=== PATIENT | female | born 1990 | race Asian ===

== ENCOUNTER 2017-11-19 09:25 | Emergency (ER) | payer OTHER ==
[2017-11-19] MEDS ORDERED: KETOROLAC 30 MG/1 ML SDV IVP ONE (10:17)
[2017-11-19] MEDS ORDERED: ONDANSETRON 4 MG/2 ML VIAL IVP ONE (10:17)
[2017-11-19] MEDS ORDERED: FAMOTIDINE 20 MG/NACL 50 ML IV ONE (10:17)
[2017-11-19] MEDS ORDERED: NS 1,000 ML IV ONE (10:17)
[2017-11-19 10:24] LABS: PLATELET COUNT 230 10^3/uL (150-400)
--- NOTE | 2017-11-19 10:31 | EDPHY ---
H & P Time Seen by Provider: 11/19/17 09:50 HPI/ROS: HPI Upper abdominal pain, vomiting. 27-year-old female by private vehicle. This patient reports that since 4:00 a.m. She has had epigastric pain and upper abdominal pain with radiation and burning up through her esophagus. She reports nausea. She reports having 2-3 episodes of nonbilious, nonbloody vomiting as well. No diarrhea. Last bowel movement was yesterday. This described as normal. No bloody or melenic stool. No history of abdominal surgeries. She has had this pain in the past. Last meal was last night. ROS: Constitutional: No fever, no chills. No weakness. Eyes: No discharge. No changes in vision. ENT: No sore throat. No nasal congestion or rhinorrhea. Respiratory: No cough. No shortness of breath. Cardiac: No chest pain, no palpitations. Gastrointestinal: As above. Genitourinary: No hematuria. No dysuria or increased frequency with urination. Musculoskeletal: No back pain. No neck pain. No myalgias or arthralgias. Skin: No rashes. Neurological: No headache. No focal weakness or altered sensation. Past medical history: Prediabetic. Social history: Nonsmoker. Here by herself. No alcohol. Physical Exam: General Appearance: Alert, no distress. This patient is responding to questions appropriately and in full sentences. This patient appears well- hydrated and well-nourished. Eyes: Pupils equal and round no pallor or injection. No lid edema, erythema or injection. Respiratory: There are no retractions, lungs are clear to auscultation with good air movement bilaterally. Cardiovascular: Regular rate and rhythm. No murmur. Gastrointestinal: Abdomen is soft with moderate right upper quadrant, epigastric and left upper quadrant tenderness on palpation, no masses, bowel sounds normal. No focal tenderness at McBurney's point. Positive Acevedo's sign. Neurological: Motor sensory function is grossly intact. Cranial nerves are normal. Gait is normal. Skin: Warm and dry, no rashes. Musculoskeletal: Neck is supple and nontender. Extremities are symmetrical. All joints range without pain or impingement. Psychiatric: No agitation. No depression. Flat affect. Database: EKG: Imaging: Right upper quadrant ultrasound: Cholelithiasis versus adherent gallbladder sludge in the neck. Moderate ductal dilatation. Report off 3rd by staff radiologist and piter. I did not discussed this case with him. Procedures: Emergency department course: IV was placed. She was placed on a quantitative equity head. Vital signs reviewed and are normal. She was started on IV normal saline with 500 cc to 1 L to be given over the next hour. She has no contraindications to NSAIDs. No history of stomach ulcers or renal dysfunction. She will be given 30 mg of IV Toradol, 4 mg of IV Zofran and 20 mg of IV Pepcid. Right upper quadrant ultrasound be obtained. 12:20 p.m., patient re-evaluated. Resting comfortably at this time. Pain is currently controlled. However on repeat abdominal exam she is tender in right upper quadrant with a positive Acevedo sign. I discussed the results of her blood work there ultrasound likely need for cholecystectomy. General surgery paged. 12:20 p.m., spoke with general surgeon Dr. Lloyd Cruz. He will see this patient in the emergency department shortly. 1:00 p.m., Dr. Lloyd Cruz is that the patient's bedside. 1:20 p.m., the patient has been seen and evaluated by on-call general surgeon Dr. Lloyd Cruz. The patient is now electing to go home and have her gallbladder taken out electively. The patient has Dr. Cruz's information. She does not have any significant pain at this time. She is tolerating oral fluids. She was discharged in good condition with instruction to follow up with surgeon early next week. Return to emergency department precautions reviewed with her. All of her questions were answered. She was discharged in good condition. Differential Diagnosis: The differential diagnosis on this patient includes but is not limited to transaminitis, early cholecystitis, gastritis, GERD, pancreatitis, biliary colic. This represents a partial list of diagnoses considered. These considerations are based on history, physical exam, past history, reassessment and diagnostic testing. Smoking Status: Never smoked Constitutional: Initial Vital Signs Temperature (C) 36.5 C 11/19/17 09:29 Heart Rate 73 11/19/17 09:29 Respiratory Rate 16 11/19/17 09:29 Blood Pressure 128/90 H 11/19/17 09:29 O2 Sat (%) 99 11/19/17 09:29 O2 Delivery Mode Room Air Allergies/Adverse Reactions: No Known Allergies Allergy (Verified 11/19/17 09:28) Home Medications: Medication Instructions Recorded Amphet Asp and D/Amphet [Adderall 5 mg PO DAILY14 11/19/17 10 MG (*)] Amphet Asp and D/Amphet [Adderall 10 mg PO DAILY 11/19/17 10 MG (*)] Nuvaring 1 each VG Q30D 11/19/17 Omeprazole 40 mg PO DAILY 11/19/17 Simethicone [Gas-X] 125 mg PO DAILY PRN 11/19/17 Spironolactone [Aldactone 50 MG 50 mg PO DAILY 11/19/17 (RX)] Medical Decision Making - Diagnostics Imaging Results: Imaging Impressions Abdomen Ultrasound 11/19/17 10:18 Impression: 1. Cholelithiasis versus adherent sludge in the gallbladder neck. 2. Moderate biliary ductal dilatation, new from prior imaging. More complete evaluation of the distal common bile duct for obstruction could be accomplished with ERCP or MRCP. - Data Points Laboratory Results: Laboratory Results 11/19/17 10:03 11/19/17 10:03 11/19/17 11/19/17 11/19/17 10:03 10:03 10:03 WBC 8.69 10^3/uL 10^3/uL (3.80-9.50) RBC 4.92 10^6/uL 10^6/uL (4.18-5.33) Hgb 13.4 g/dL g/dL (12.6-16.3) Hct 39.9 % % (38.0-47.0) MCV 81.1 fL L fL (81.5-99.8) MCH 27.2 pg L pg (27.9-34.1) MCHC 33.6 g/dL g/dL (32.4-36.7) RDW 13.0 % % (11.5-15.2) Plt Count 230 10^3/uL 10^3/uL (150-400) MPV 11.6 fL fL (8.7-11.7) Neut % (Auto) 75.7 % H % (39.3-74.2) Lymph % (Auto) 18.3 % % (15.0-45.0) Floyd % (Auto) 5.2 % % (4.5-13.0) Eos % (Auto) 0.1 % L % (0.6-7.6) Baso % (Auto) 0.5 % % (0.3-1.7) Nucleat RBC Rel Count 0.0 % % (0.0-0.2) Absolute Neuts (auto) 6.58 10^3/uL H 10^3/uL (1.70-6.50) Absolute Lymphs (auto) 1.59 10^3/uL 10^3/uL (1.00-3.00) Absolute Monos (auto) 0.45 10^3/uL 10^3/uL (0.30-0.80) Absolute Eos (auto) 0.01 10^3/uL L 10^3/uL (0.03-0.40) Absolute Basos (auto) 0.04 10^3/uL 10^3/uL (0.02-0.10) Absolute Nucleated RBC 0.00 10^3/uL 10^3/uL (0-0.01) Immature Gran % 0.2 % % (0.0-1.1) Immature Gran # 0.02 10^3/uL 10^3/uL (0.00-0.10) Sodium 142 mEq/L mEq/L (135-145) Potassium 4.2 mEq/L mEq/L (3.3-5.0) Chloride 108 mEq/L mEq/L (97-110) Carbon Dioxide 24 mEq/l mEq/l (22-31) Anion Gap 10 mEq/L mEq/L (8-16) BUN 10 mg/dL mg/dL (7-23) Creatinine 0.6 mg/dL mg/dL (0.6-1.0) Estimated GFR > 60 Glucose 99 mg/dL mg/dL (70-100) Calcium 9.6 mg/dL mg/dL (8.5-10.4) Total Bilirubin 0.8 mg/dL mg/dL (0.1-1.4) Conjugated Bilirubin 0.6 mg/dL H mg/dL (0.0-0.5) Unconjugated Bilirubin 0.2 mg/dL mg/dL (0.0-1.1) AST 265 IU/L H IU/L (14-46) ALT 158 IU/L H IU/L (9-52) Alkaline Phosphatase 61 IU/L IU/L (38-126) Total Protein 7.2 g/dL g/dL (6.3-8.2) Albumin 4.3 g/dL g/dL (3.5-5.0) Lipase 147 IU/L IU/L (23-300) Beta HCG, Qual NEGATIVE Medications Given: Discontinued Medications Sodium Chloride (Ns) 1,000 mls @ 0 mls/hr IV EDNOW ONE; Wide Open PRN Reason: Protocol Stop: 11/19/17 10:18 Last Admin: 11/19/17 10:23 Dose: 1,000 mls Famotidine/Sodium Chloride (Pepcid 20 Mg (Premix)) 50 mls @ 200 mls/hr IV EDNOW ONE Stop: 11/19/17 10:31 Last Admin: 11/19/17 10:28 Dose: 50 mls Ketorolac Tromethamine (Toradol) 30 mg IVP EDNOW ONE Stop: 11/19/17 10:18 Last Admin: 11/19/17 10:27 Dose: 30 mg Ondansetron HCl (Zofran) 4 mg IVP EDNOW ONE Stop: 11/19/17 10:18 Last Admin: 11/19/17 10:27 Dose: 4 mg Departure - Departure Disposition: Home, Routine, Self-Care Clinical Impression: Upper abdominal pain, Transaminitis, Biliary colic, Gallstones Condition: Good
--- NOTE | 2017-11-19 13:44 | EDPHY ---
H & P Time Seen by Provider: 11/19/17 09:50 Smoking Status: Never smoked Constitutional: Initial Vital Signs Temperature (C) 36.5 C 11/19/17 09:29 Heart Rate 73 11/19/17 09:29 Respiratory Rate 16 11/19/17 09:29 Blood Pressure 128/90 H 11/19/17 09:29 O2 Sat (%) 99 11/19/17 09:29 O2 Delivery Mode Room Air Allergies/Adverse Reactions: No Known Allergies Allergy (Verified 11/19/17 09:28) Home Medications: Medication Instructions Recorded Amphet Asp and D/Amphet [Adderall 5 mg PO DAILY14 11/19/17 10 MG (*)] Amphet Asp and D/Amphet [Adderall 10 mg PO DAILY 11/19/17 10 MG (*)] Nuvaring 1 each VG Q30D 11/19/17 Omeprazole 40 mg PO DAILY 11/19/17 Simethicone [Gas-X] 125 mg PO DAILY PRN 11/19/17 Spironolactone [Aldactone 50 MG 50 mg PO DAILY 11/19/17 (RX)] Medical Decision Making - Data Points Laboratory Results: Laboratory Results 11/19/17 10:03 11/19/17 10:03 Medications Given: Discontinued Medications Sodium Chloride (Ns) 1,000 mls @ 0 mls/hr IV EDNOW ONE; Wide Open PRN Reason: Protocol Stop: 11/19/17 10:18 Last Admin: 11/19/17 10:23 Dose: 1,000 mls Famotidine/Sodium Chloride (Pepcid 20 Mg (Premix)) 50 mls @ 200 mls/hr IV EDNOW ONE Stop: 11/19/17 10:31 Last Admin: 11/19/17 10:28 Dose: 50 mls Ketorolac Tromethamine (Toradol) 30 mg IVP EDNOW ONE Stop: 11/19/17 10:18 Last Admin: 11/19/17 10:27 Dose: 30 mg Ondansetron HCl (Zofran) 4 mg IVP EDNOW ONE Stop: 11/19/17 10:18 Last Admin: 11/19/17 10:27 Dose: 4 mg Departure - Departure Disposition: Home, Routine, Self-Care Clinical Impression: Upper abdominal pain, Transaminitis, Biliary colic, Gallstones Condition: Good Instructions: Biliary Colic (ED), Acute Nausea and Vomiting (ED) Additional Instructions: Return the emergency dept. immediately for worsening abdominal pain , vomiting, fever, or other serious concerns. Follow up with Dr. Lloyd Mackenzie, gail next for elective scheduling for gallbladder surgery. Referrals: Lloyd Cruz MD [Medical Doctor] - As per Instructions
--- NOTE | 2017-11-19 13:44 | GHP ---
[f rep st] HISTORY AND PHYSICAL DATE OF ADMISSION: 11/19/2017 CHIEF COMPLAINT: Right upper quadrant pain. PRESENT ILLNESS: 27-year-old female presents with severe right upper quadrant and epigastric pain ra diating to her back. She states she has had similar previous episodes, some of which extend for a ye ar. She has been in ERs before and has not achieved a diagnosis today. An ultrasound shows to me cl ear-cut stones, although there is no posterior acoustic shadowing, but it really does not look like s ludge. They seem to be well-formed stones. Liver function test are mildly elevated with an AST of 265, ALT 158, but the alkaline phosphatase is normal and the bilirubin total is 0.8. PAST MEDICAL HISTORY: None. MEDICAL ALLERGIES: None. CURRENT MEDICATIONS: Spironolactone for acne, Adderall 10 in the morning, 5 at night, and a NuvaRing for control. FAMILY HISTORY: Diabetes. Nonsmoker. No alcohol use. Patient denies asthma, heart trouble, diabet es, epilepsy, rheumatic fever. PAST SURGICAL HISTORY: Oral. 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 PHYSICAL EXAM: HEENT: No scleral icterus. Pharynx clear. NECK: Supple without adenopathy. LUNGS : Clear. HEART: Normal S1, S2 without murmur. ABDOMEN: Soft, benign. Negative Acevedo sign. ASSESSMENT: Patient is seen in the ER with epigastric and right upper quadrant pain which is now rel ieved. She received Toradol, not narcotics, in the emergency room. I discussed emergent versus elec tive cholecystectomy with her, and because of her work schedule, she would like to delay the surgery. This is reasonable. I recommended they try her on a food challenge prior to discharge, but if this goes well, an elective cholecystectomy can be done at her convenience. Copy requested to: Dr. Amelia Arellano /[id number]/MODL
[2017-11-19 13:52] VITALS: BP 135/90
== END 2017-11-19 13:51 | disposition home or self-care (01) ==
LOC: UNDOADMOB 12:27
DX: K80.70 Calculus of gallbladder and bile duct without cholecystitis without obstruction (principal); R74.0 Nonspecific elevation of levels of transaminase and lactic acid dehydrogenase [LDH]; E86.9 Volume depletion, unspecified
CPT/HCPCS: 96365; J1885; J2405

== ENCOUNTER 2017-11-25 02:26 | Observation (INO) | payer OTHER ==
[2017-11-25] MEDS ORDERED: ONDANSETRON 4 MG/2 ML VIAL ONE ×2 (02:44→10:57)
[2017-11-25] MEDS ORDERED: ONDANSETRON 4 MG/2 ML VIAL IVP ONE (02:48)
[2017-11-25] MEDS ORDERED: NS 1,000 ML IV ONE ×2 (02:48→05:25)
[2017-11-25 03:17] LABS: PLATELET COUNT 246 10^3/uL (150-400)
[2017-11-25] MEDS ORDERED: KETOROLAC 15 MG/1 ML SDV IVP ONE (03:18)
[2017-11-25] MEDS ORDERED: HYDROmorphONE/DILAUDID 2 MG/ML INJ IVP ONE (03:18)
--- NOTE | 2017-11-25 03:22 | EDPHY ---
H & P Stated Complaint: gallstones dx 11/19, N/V/D Time Seen by Provider: 11/25/17 03:11 HPI/ROS: HPI The patient presents with epigastric and right upper quadrant abdominal pain which began at about 10:30 p.m. Tonight which is described as a punching sensation deep in her abdomen with radiation to her right flank. She last ate at 7:30 p.m., an omelet. She has had associated nausea and vomiting without any fever. The pain has been constant since it started. It feels like the pain she had several days ago when she was diagnosed with symptomatic coli lithiasis. She was in the Emergency Department on November 19 with similar symptoms. Ultrasound revealed gallstones and transaminases were elevated. She was seen in consultation by Dr. Curz and she decided that she would like to have outpatient surgery. In the meantime, she sought a 2nd opinion from GI [facility] and there was some concern for choledocholithiasis.. REVIEW OF SYSTEMS Constitutional: No fever, no chills. Eyes: No discharge. ENT: No sore throat. Cardiovascular: No chest pain, no palpitations. Respiratory: No cough, no shortness of breath. Gastrointestinal: See HPI Genitourinary: No hematuria. Musculoskeletal: No back pain. Skin: No rashes. Neurological: No headache. PMHx: Cholelithiasis as above Soc Hx: Housed PHYSICAL General Appearance: Alert, no distress Eyes: Pupils equal and round no pallor or injection ENT, Mouth: Mucous membranes moist Respiratory: There are no retractions, lungs are clear to auscultation Cardiovascular: Regular rate and rhythm Gastrointestinal: Abdomen is soft and tender in the epigastrium and right upper quadrant with voluntary guarding Neurological: A&O, moves all extremities Skin: Warm and dry, no rashes Musculoskeletal: Neck is supple non tender Extremities: symmetrical, full range of motion Psychiatric: Patient is oriented X 3, there is no agitation Source: Patient Exam Limitations: No limitations - Personal History LMP (Females 10-55): 8-14 Days Ago Current Tetanus/Diphtheria Vaccine: Yes - Medical/Surgical History Hx Asthma: No Hx Chronic Respiratory Disease: No Hx Diabetes: No Hx Cardiac Disease: No Hx Renal Disease: No Hx Cirrhosis: No Hx Alcoholism: No Hx HIV/AIDS: No Hx Splenectomy or Spleen Trauma: No Other PMH: pmh- pre-diabetic - Social History Smoking Status: Never smoked Constitutional: Initial Vital Signs Temperature (C) 36.3 C 11/25/17 02:28 Heart Rate 106 H 11/25/17 02:28 Respiratory Rate 16 11/25/17 02:28 Blood Pressure 113/73 11/25/17 02:28 O2 Sat (%) 97 11/25/17 02:28 O2 Delivery Mode Room Air Allergies/Adverse Reactions: No Known Allergies Allergy (Verified 11/19/17 09:28) Home Medications: Medication Instructions Recorded Amphet Asp and D/Amphet [Adderall 5 mg PO DAILY14 11/19/17 10 MG (*)] Amphet Asp and D/Amphet [Adderall 10 mg PO DAILY 11/19/17 10 MG (*)] Nuvaring 1 each VG Q30D 11/19/17 Omeprazole 40 mg PO DAILY 11/19/17 Simethicone [Gas-X] 125 mg PO DAILY PRN 11/19/17 Spironolactone [Aldactone 50 MG 50 mg PO DAILY 11/19/17 (RX)] Medical Decision Making - Diagnostics Imaging Results: Right upper quadrant ultrasound demonstrates multiple small gallstones with gallstone present in gallbladder neck. There are no pericholecystic fluid, sonographic Acevedo's. CBD is 5-8 mm, discussed with Dr. Stafford of Radiology. Imaging: Discussed imaging studies w/ bolt sawyer Radiologist Differential Diagnosis: This is a 27-year-old female, who was diagnosed with symptomatic cholelithiasis several days ago now returning with recurrence of her abdominal pain and vomiting. Differential diagnosis includes symptomatic cholelithiasis, cholecystitis, choledocholithiasis. In the emergency department, patient was given IV fluids, Zofran, Toradol, Dilaudid. She had improvement in her symptoms. Labs were checked and did reveal transaminitis, slightly worse than her prior ER visit. White blood cell count had increased from 8k to 11k.. Ultrasound revealed cholelithiasis which with small stone in the gallbladder neck. I reassessed the patient and her pain had improved somewhat with medications above. I consulted with Dr. Su from General surgery. The patient is amenable to admission and possible operation. He has requested Ancef and Bentyl for her. I have ordered these medications. - Data Points Laboratory Results: Laboratory Results 11/25/17 02:40 11/25/17 02:40 11/25/17 11/25/17 11/25/17 03:30 02:40 02:40 WBC RBC Hgb Hct MCV MCH MCHC RDW Plt Count MPV Neut % (Auto) Lymph % (Auto) Walker % (Auto) Eos % (Auto) Baso % (Auto) Nucleat RBC Rel Count Absolute Neuts (auto) Absolute Lymphs (auto) Absolute Monos (auto) Absolute Eos (auto) Absolute Basos (auto) Absolute Nucleated RBC Immature Gran % Immature Gran # Sodium 140 mEq/L mEq/L (135-145) Potassium 3.7 mEq/L mEq/L (3.3-5.0) Chloride 100 mEq/L mEq/L (97-110) Carbon Dioxide 27 mEq/l mEq/l (22-31) Anion Gap 13 mEq/L mEq/L (8-16) BUN 12 mg/dL mg/dL (7-23) Creatinine 0.7 mg/dL mg/dL (0.6-1.0) Estimated GFR > 60 Glucose 119 mg/dL H mg/dL (70-100) Calcium 9.7 mg/dL mg/dL (8.5-10.4) Total Bilirubin 1.1 mg/dL mg/dL (0.1-1.4) Conjugated Bilirubin 0.9 mg/dL H mg/dL (0.0-0.5) Unconjugated Bilirubin 0.2 mg/dL mg/dL (0.0-1.1) AST 329 IU/L H IU/L (14-46) ALT 252 IU/L H IU/L (9-52) Alkaline Phosphatase 85 IU/L IU/L (38-126) Total Protein 7.3 g/dL g/dL (6.3-8.2) Albumin 4.3 g/dL g/dL (3.5-5.0) Lipase 239 IU/L IU/L (23-300) Beta HCG, Qual NEGATIVE Urine Color YELLOW Urine Appearance MODERATELY TURBID Urine pH 9.0 H (5.0-7.5) Ur Specific Forrest 1.014 (1.002-1.030) Urine Protein NEGATIVE (NEGATIVE) Urine Ketones TRACE H (NEGATIVE) Urine Blood NEGATIVE (NEGATIVE) Urine Nitrate NEGATIVE (NEGATIVE) Urine Bilirubin NEGATIVE (NEGATIVE) Urine Urobilinogen NEGATIVE EU EU (0.2-1.0) Ur Leukocyte Esterase NEGATIVE (NEGATIVE) Urine RBC 1-3 /hpf /hpf (0-3) Urine WBC 1-3 /hpf /hpf (0-3) Ur Epithelial Cells TRACE /lpf /lpf (NONE-1+) Amorphous Sediment PRESENT /hpf /hpf (NONE-1+) Urine Glucose NEGATIVE (NEGATIVE) 11/25/17 02:40 WBC 11.82 10^3/uL H 10^3/uL (3.80-9.50) RBC 5.12 10^6/uL 10^6/uL (4.18-5.33) Hgb 13.9 g/dL g/dL (12.6-16.3) Hct 42.0 % % (38.0-47.0) MCV 82.0 fL fL (81.5-99.8) MCH 27.1 pg L pg (27.9-34.1) MCHC 33.1 g/dL g/dL (32.4-36.7) RDW 12.9 % % (11.5-15.2) Plt Count 246 10^3/uL 10^3/uL (150-400) MPV 11.8 fL H fL (8.7-11.7) Neut % (Auto) 70.0 % % (39.3-74.2) Lymph % (Auto) 22.9 % % (15.0-45.0) Walker % (Auto) 6.3 % % (4.5-13.0) Eos % (Auto) 0.3 % L % (0.6-7.6) Baso % (Auto) 0.2 % L % (0.3-1.7) Nucleat RBC Rel Count 0.0 % % (0.0-0.2) Absolute Neuts (auto) 8.28 10^3/uL H 10^3/uL (1.70-6.50) Absolute Lymphs (auto) 2.71 10^3/uL 10^3/uL (1.00-3.00) Absolute Monos (auto) 0.74 10^3/uL 10^3/uL (0.30-0.80) Absolute Eos (auto) 0.04 10^3/uL 10^3/uL (0.03-0.40) Absolute Basos (auto) 0.02 10^3/uL 10^3/uL (0.02-0.10) Absolute Nucleated RBC 0.00 10^3/uL 10^3/uL (0-0.01) Immature Gran % 0.3 % % (0.0-1.1) Immature Gran # 0.03 10^3/uL 10^3/uL (0.00-0.10) Sodium Potassium Chloride Carbon Dioxide Anion Gap BUN Creatinine Estimated GFR Glucose Calcium Total Bilirubin Conjugated Bilirubin Unconjugated Bilirubin AST ALT Alkaline Phosphatase Total Protein Albumin Lipase Beta HCG, Qual Urine Color Urine Appearance Urine pH Ur Specific Forrest Urine Protein Urine Ketones Urine Blood Urine Nitrate Urine Bilirubin Urine Urobilinogen Ur Leukocyte Esterase Urine RBC Urine WBC Ur Epithelial Cells Amorphous Sediment Urine Glucose Medications Given: Discontinued Medications Dicyclomine HCl (Bentyl) 20 mg PO EDNOW ONE Stop: 11/25/17 04:35 Last Admin: 11/25/17 04:52 Dose: 20 mg Hydromorphone HCl (Dilaudid) 0.5 mg IVP EDNOW ONE Stop: 11/25/17 03:19 Last Admin: 11/25/17 03:23 Dose: 0.5 mg Sodium Chloride (Ns) 1,000 mls @ 0 mls/hr IV ONCE ONE PRN Reason: Wide Open Stop: 11/25/17 02:49 Last Admin: 11/25/17 02:49 Dose: 1,000 mls Cefazolin Sodium/Dextrose (Ancef 1 Gm (Premix)) 50 mls @ 200 mls/hr IV EDNOW ONE PRN Reason: Protocol Stop: 11/25/17 04:48 Last Admin: 11/25/17 05:06 Dose: 50 mls Ketorolac Tromethamine (Toradol) 15 mg IVP EDNOW ONE Stop: 11/25/17 03:19 Last Admin: 11/25/17 03:23 Dose: 15 mg Ondansetron HCl (Zofran) 4 mg IVP EDNOW ONE Stop: 11/25/17 02:49 Last Admin: 11/25/17 02:49 Dose: 4 mg Departure - Departure Disposition: [facility] Acute Clinical Impression: Symptomatic cholelithiasis Condition: Good
[2017-11-25] MEDS ORDERED: DICYCLOMINE 10 MG CAP PO ONE (04:34)
[2017-11-25] MEDS ORDERED: HYDROmorphONE/DILAUDID 1 MG/ML INJ IVP PRN ×2 (06:20→12:57)
[2017-11-25] MEDS ORDERED: ONDANSETRON 4 MG/2 ML VIAL IVP PRN (06:20)
[2017-11-25] MEDS ORDERED: NS 1,000 ML IV SCH (06:30)
[2017-11-25] MEDS: ACETAMINOPHEN 500 MG TAB PO SCH ×4 (07:41→23:13)
--- NOTE | 2017-11-25 07:44 | GHP ---
[f rep st] PREOP HISTORY AND PHYSICAL DATE OF ADMISSION: 11/25/2017 ADMITTING DIAGNOSIS: Acute cholecystitis with cholelithiasis. HISTORY: The patient is a 27-year-old female. She has had intermittent abdominal pain for the past 2 years. She was seen in the ER on November 19. She was found to have gallstones and elevated transaminases. Cholelithiasis was identified at that time. Since that point, her pain has remained at approximately 2/10. Last evening at 7:30 she had an omelette for dinner. At 10 :30 she had the onset of a constant right upper quadrant pain which described "as if she is being punched." She could not find a comfortable position. She had seen gastroenterology of the [facility] in the interim and had be given anti- spasmodic. She tried lying on her right side in the position after taking the anti-spasmodic and that was not helpful. She did vomit 4 times and came to the emergency room. On initial presentation, she had a positive Acevedo sign. A followup ultrasound showed her common duct to be 5-8 mm in diameter with no obvious stones in the common bile duct per report. She did not have a sonographically positive Acevedo sign at that point, but did have a 5 mm stone. I was asked to come see her and evaluate her. SOCIAL HISTORY: She does not smoke tobacco but occasionally smokes marijuana. She drinks alcohol on a rare basis (1 drink every other week). ALLERGIES: She has no known drug allergies. MEDICATIONS: She takes Adderall 10 mg every morning and 5 mg at noon every day. She uses a NuvaRing. She takes Prilosec 40 mg daily. She takes Aldactone 50 mg daily. She has polycystic ovaries and she feels it also helps her acne. PAST SURGICAL HISTORY: She has had wisdom tooth extraction. Early this year because of her persistent gastroenterological problems she had both an upper and lower endoscopy which were both negative. There is no history of rheumatic fever, tuberculosis. Her family has had hepatitis A and she wonders whether she has had it or not. There is no history of transfusions. REVIEW OF SYSTEMS: Her stones were small. Her mean corpuscular hemoglobin is low, and she does have a cousin who has a thalassemia. She wears contact lenses for visual correction. She has been seen and evaluated for possible gastritis, which is why she takes the Prilosec. When she was in high school, she was approximately 25 pounds heavier. At one point she was thought to be hypothyroid. She also was thought to be prediabetic and was on metformin for a period in high school. No limits on her activities. No history of steroid use. FAMILY HISTORY: Her mother is 55 years old and "prediabetic." Her father is 60 years old and is a diabetic. She has a younger brother, who is 22, is alive well. There was no bleeding disorders, clotting disorders, difficulty with anesthesia in the patient or the family. PHYSICAL EXAMINATION: GENERAL: She is awake and alert. She has received Ancef , Toradol, and Bentyl. At this point she is feeling more comfortable. She awake, alert, and oriented. NEUROLOGIC: There are no focal lateralizing neurologic findings. NECK: Thyroid is not enlarged. There are no carotid bruits. BACK: Unremarkable. LUNGS: Clear to auscultation. CARDIAC: S1-S2 are normal. Normal split of S2. ABDOMEN: Shows hypoactive bowel sounds. It is nontender to palpation in all quadrants and at this point her Acevedo sign although present on admission has remarkably diminished. VITAL SIGNS: Her temperature is 36.3, heart rate was 106 on admission, blood pressure 113/73, saturation 97% on room air. LABORATORY DATA: Her hematocrit is 42. Her mean corpuscular hemoglobin is 27.1 , and platelet count is 246. Her bilirubin total is 1.1 with 0.9 direct, 0.2 indirect. Her AST has gone up from 6 days ago from 256 to 329. ALT is has gone up from 158 to 252, alkaline phosphatase is 85. Her beta HCG is negative. IMPRESSION: I feel this patient has symptomatic cholelithiasis. I have no distinct concerns at this point for choledocholithiasis, though we have talked about that aspect. I do not feel that MRCP is necessary at this time. I will try to do a cholangiogram at surgery if it is safe. We have talked about retained stones or de shelli choledocholithiasis in the future. I suggest that she get a workup screening for thalassemia given the family history if she in fact does have calcium bilirubinate stones. I have discussed her case with her mother and her aunt (who is an food and nutrition professor). The patient, her aunt and her mother agree to proceed as outlined. /[id number]/MODL MTDD
[2017-11-25] MEDS ORDERED: LR 1,000 ML IV ONE (08:59)
[2017-11-25] MEDS ORDERED: NUVARING VG SCH (09:15)
[2017-11-25] MEDS ORDERED: MIDAZOLAM 2 MG/2 ML VIAL IVP ONE (10:00)
--- NOTE | 2017-11-25 10:00 | PDANEPAE ---
ANE History of Present Illness acute cholecystitis ANE Past Medical History - Cardiovascular History Hx Hypertension: No Hx Arrhythmias: No Hx Chest Pain: No Hx Coronary Artery / Peripheral Vascular Disease: No Hx CHF / Valvular Disease: No Hx Palpitations: No - Pulmonary History Hx COPD: No Hx Asthma/Reactive Airway Disease: No Hx Recent Upper Respiratory Infection: No Hx Oxygen in Use at Home: No Hx Sleep Apnea: No Sleep Apnea Screening Result - Last Documented: Negative - Endocrine History Hx Diabetes: No Hypothyroid: No Hyperthyroid: No Obesity: no - Renal History Hx Renal Disorders: No - Liver History Hx Hepatic Disorders: No - GI History GERD: moderate - Other Health History Other Health History: PCOS - Chronic Pain History Chronic Pain: No ANE Review of Systems Review of systems is: negative Review of Systems: - Exercise capacity Exercise capacity: >=4 METS ANE Patient History - Allergies Allergies/Adverse Reactions: No Known Allergies Allergy (Verified 11/19/17 09:28) - Home Medications Home Medications: Amphet Asp and D/Amphet [Adderall 10 MG (*)] 5 mg PO DAILY@12 11/19/17 [Last Taken 11/24/17] Amphet Asp and D/Amphet [Adderall 10 MG (*)] 10 mg PO DAILY 11/19/17 [Last Taken 11/24/17] Nuvaring 1 each VG Q30D 11/19/17 [Last Taken Unknown] Simethicone [Gas-X] 125 mg PO DAILY PRN 11/19/17 [Last Taken Unknown] Spironolactone [Aldactone 50 MG (RX)] 50 mg PO DAILY 11/19/17 [Last Taken 2 Weeks Ago ~11/05/17] - NPO status NPO Status: no food or drink >8 hours NPO Since - Liquids (Date): 11/25/17 NPO Since - Liquids (Time): 00:00 NPO Since - Solids (Date): 11/24/17 NPO Since - Solids (Time): 19:30 - Anes Hx Anes Hx: no prior problems - Smoking Hx Smoking Status: Never smoked Marijuana use: Yes - Alcohol Use Alcohol Use: Occasionally - Family Anes Hx Family Anes Hx: none ANE Labs/Vital Signs - Labs Result Diagrams: 11/25/17 02:40 11/25/17 02:40 - Vital Signs Blood Pressure: 114/64 Heart Rate: 79 Respiratory Rate: 18 O2 Sat (%): 96 Height: 162.56 cm Weight: 65.77 kg ANE Physical Exam - Airway Neck exam: FROM Mallampati Score: Class 2 - Pulmonary Pulmonary: no respiratory distress - Cardiovascular Cardiovascular: regular rate and rhythym - ASA Status ASA Status: II ANE Anesthesia Plan Anesthesia Plan: general endotracheal anesthesia
[2017-11-25] MEDS ORDERED: HEPARIN 5,000 UNIT/0.5 ML INJ ONE (10:35)
[2017-11-25] MEDS ORDERED: IOTHALAMATE MEG (CONRAY) 50 ML VIAL IV ONE (10:35)
[2017-11-25] MEDS ORDERED: ceFAZolin 1 GM/5 ML SYR ONE (10:36)
[2017-11-25] MEDS ORDERED: fentaNYL 100 MCG/2 ML INJ ONE ×4 (10:57→13:10)
[2017-11-25] MEDS ORDERED: DEXAMETHASONE 4 MG/ML VIAL ONE (10:57)
[2017-11-25] MEDS ORDERED: SUGAMMADEX SODIUM 200 MG/2 ML VIAL IVP ONE (10:57)
[2017-11-25] MEDS ORDERED: ROCURONIUM 50 MG/5 ML VIAL ONE (10:57)
[2017-11-25] MEDS ORDERED: LIDOCAINE 2% 5 ML SDV ONE (10:57)
[2017-11-25] MEDS ORDERED: KETOROLAC 30 MG/1 ML SDV ONE (10:57)
[2017-11-25] MEDS ORDERED: PROPOFOL 200 MG/20 ML VIAL ONE (10:57)
[2017-11-25] MEDS ORDERED: ACETAMINOPHEN 500 MG TAB PO PRN (12:57)
[2017-11-25] MEDS ORDERED: HYDROCODONE/APAP 5/325 TAB PO PRN (12:57)
[2017-11-25] MEDS ORDERED: ALBUTEROL 3 ML DEYVIAL IH PRN (12:57)
[2017-11-25] MEDS ORDERED: NALOXONE HCL 0.4 MG/ML INJ IVP PRN (12:57)
[2017-11-25] MEDS ORDERED: PROMETHAZINE HCL 25 MG/ML INJ IVP PRN (12:57)
[2017-11-25] MEDS ORDERED: oxyCODONE IR 5 MG TAB PO PRN (12:57)
--- NOTE | 2017-11-25 12:57 | POSTANESTH ---
Post Anesthetic Evaluation Cardiovascular Status: Normal, Stable Respiratory Status: Normal, Stable Level of Consciousness/Mental Status: Can Participate in Eval, Mildly Sleepy, Arousable Pain Control: Adequate, Prn Tx Ordered Nausea/Vomiting Control: Adequate, Prn Tx Ordered Complications Possibly Related to Anesthesia: None Noted
--- NOTE | 2017-11-25 12:58 | POSTOPPROG ---
Post Op Note Date of Operation: 11/25/17 Surgeon: Qamar Su Pre-op Diagnosis: acute/chronic cholecystitis with cholelithiasis Post-op Diagnosis: acute/chronic cholecystitis with cholelithiasis Indication: acute/chronic cholecystitis with cholelithiasis Procedure: Laparoscopic cholecystectomy with cholangiogram Findings: acute/chronic cholecystitis with cholelithiasis Inf/Abcess present in the surg proc area at time of surgery?: No EBL: 50-100 Total fluids administered: 700 Complications: none Specimen(s): gallbladder
[2017-11-25] MEDS ORDERED: HYDROmorphONE/DILAUDID 1 MG/ML INJ ONE (13:10)
[2017-11-25] MEDS: fentaNYL 100 MCG/2 ML INJ IVP PRN ×2 (13:12→13:21)
--- NOTE | 2017-11-25 13:37 | GOP ---
[f rep st] OPERATIVE REPORT DATE OF OPERATION: 11/25/2017 SURGEON: Qamar Su MD ANESTHESIA: General endotracheal. PREOPERATIVE DIAGNOSIS: Acute on chronic cholecystitis with cholelithiasis. POSTOPERATIVE DIAGNOSIS: Acute on chronic cholecystitis with cholelithiasis. PROCEDURE PERFORMED: Laparoscopic cholecystectomy with cholangiogram. FINDINGS: Acute and chronic cholecystitis with cholelithiasis. SPECIMENS: Gallbladder. Note is made that the stones looked to be cholesterol , not calcium bilirubinate. ESTIMATED BLOOD LOSS: Between 50 and 100 cc. INDICATIONS: Acute and chronic cholecystitis with cholelithiasis. DESCRIPTION OF PROCEDURE: The patient was placed on the operating table in supine position. After induction of adequate general endotracheal anesthesia, the abdomen was carefully prepped and draped. A surgical time-out was carried out and agreed to by all members of the operative team. A curvilinear incision was planned in the inferior umbilical fold. Dissection was continued down to the anterior rectus sheath which was elevated between Allis clamps. The fascia was incised in the midline. A pursestring of #0 PDS was placed. The peritoneum was entered. An 11/12 mm disposable Eliezer trocar was positioned. Intra-abdominal insufflation was carried out to 15 mm at high flow. A midline transverse upper epigastric incision was made for placement of a 5 mm port. Two right upper quadrant 5 mm incisions were placed obliquely for placement of a 5 mm port. Intraabdominal inspection was carried out. There were minimal adhesions to the gallbladder. It was grasped at the apex and at the infundibulum and elevated. The Calot triangle was carefully explored. There was an anterior and aberrant placement of a cystic artery. This was doubly clipped on the patient's side, singly clipped on the gallbladder side. A dilated and tortuous cystic duct was identified. (approximately 3 mm in diameter). A cholangiogram was then performed. The gallbladder was elevated at the infundibulum. The cystic duct was kay transected after a critical view had been obtained to make sure there were not any other ductal structures. The cholangiogram catheter was carefully flushed. Cholangiogram catheter was carefully passed. The cholangiogram was performed. It showed a very long cystic duct as suspected. It showed good flow into the duodenum without any signs of retained stones. It showed good backflow into the hepatic branches. The cholangiogram catheter was removed. The duct was carefully clipped to prevent leakage. The duct was now dissected further proximally to minimize the redundancy. It was carefully clipped 3 times and divided distal to the clips. Care was taken to not compromise the common bile duct. The gallbladder was now carefully removed using a hook cautery. A 2nd branch cystic artery was identified posteriorly and higher on the gallbladder. This was carefully clipped and divided. The gallbladder was successfully removed from its fossa. Hemostasis was achieved with Bovie electrocautery. The gallbladder was then removed in an EndoCatch bag. At the end of the procedure, on the back table the gallbladder was opened and the stones were not calcium bilirubinate, but rather cholesterol. Pneumoperitoneum was re-established. Irrigation was carried out. Hemostasis was assured. The report from Radiology confirmed my interpretation of the cholangiogram was received. The ports were removed under direct vision. The midline fascial defect was closed with inverted simple suture of #0 PDS. The pursestring was now carefully tied. The subcutaneous tissue was well irrigated. The skin was closed with inverted simple sutures of #4-0 Vicryl. Mastisol and Steri-Strips were placed. The patient tolerated the procedure well and was transferred to recovery in stable and satisfactory condition. FLUIDS ADMINISTERED: 700 cc. COMPLICATIONS: None. /[id number]/MODL MTDD
[2017-11-25] MEDS: FAMOTIDINE 20 MG/NACL 50 ML IV SCH ×2 (13:53→20:12)
[2017-11-25] MEDS: ADDERALL 10 MG TAB PO SCH (14:01)
[2017-11-25] MEDS: KETOROLAC 15 MG/1 ML SDV IVP SCH ×3 (14:01→23:14)
[2017-11-26] MEDS: ACETAMINOPHEN 500 MG TAB PO SCH ×2 (05:47→15:57)
[2017-11-26] MEDS: KETOROLAC 15 MG/1 ML SDV IVP SCH ×2 (05:47→12:35)
[2017-11-26] MEDS ORDERED: ADDERALL 10 MG TAB PO SCH (09:00)
[2017-11-26] MEDS ORDERED: SPIRONOLACTONE 50 MG TAB PO SCH (09:00)
--- NOTE | 2017-11-26 10:03 | ASMTCMCOM ---
CM Note CM Note Notes: Pt had lap choly with intraoperative cholangiogram. Anticipate pt will d/c when medically stable. No CM d/c needs identified. CM available for changes/needs. Date Signed: 11/26/2017 10:02 AM Electronically Signed By:VINICIUS Smith
[2017-11-26] MEDS: FAMOTIDINE 20 MG/NACL 50 ML IV SCH (10:12)
[2017-11-26] MEDS ORDERED: FAMOTIDINE 20 MG TAB PO SCH (11:00)
[2017-11-26 11:30] VITALS: BP 116/77
[2017-11-26] MEDS ORDERED: KETOROLAC 30 MG/1 ML SDV IVP SCH (12:00)
[2017-11-26] MEDS: ADDERALL 10 MG TAB PO SCH (12:22)
--- NOTE | 2017-11-26 14:12 | SOAPPROG ---
SOAP Progress Note Assessment/Plan: 11/26/17 14:09 PAD#1 Assessment: Doing well, VSS, Eating and passing flatus. Pain controlled Plan: Discharge Subjective: I have some pain but its manageable Objective: Vital Signs Temp Pulse Resp BP Pulse Ox 36.4 C 77 14 116/77 98 11/26/17 11:30 11/26/17 11:30 11/26/17 11:30 11/26/17 11:30 11/26/17 11:30 Laboratory Results 11/26/17 04:46 11/26/17 04:46 11/25/17 11/26/17 11/27/17 05:59 05:59 05:59 Intake Total 1000 880 Output Total 100 Balance 1000 780 - Time Spent With Patient Time Spent With Patient: 15 Physical Exam - Physical Exam General Appearance: WD/WN, alert, no apparent distress Neck: non-tender, full range of motion, supple, normal inspection Respiratory: chest non-tender, lungs clear, normal breath sounds Cardiac/Chest: regular rate, rhythm Abdomen: normal bowel sounds, non-tender, soft, other (Incisions dry and well approximated) Pelvic Exam: deferred Rectal: deferred Back: Normal inspection Skin: normal color, warm/dry Lymphatic: no adenopathy Extremities: normal range of motion Neuro/Psych: no motor/sensory deficits, alert, normal mood/affect, oriented x 3 ICD10 Worksheet Patient Problems: Problems Problem Status Onset Symptomatic cholelithiasis Acute Abdominal pain Acute Biliary colic Acute Gallstones Acute
--- NOTE | 2017-11-26 14:54 | ASMTLACE ---
SHELLEYE Length of stay for Answers: 1 day current admission Acuity / Level of Answers: No Care: Did the patient have an inpatient admission? # of Emergency department Answers: 1-2 visits in the last 6 months Score: 2 Date Signed: 11/26/2017 02:54 PM Electronically Signed By:VINICIUS Smith
--- NOTE | 2017-11-26 15:00 | GDS ---
[f rep st] DISCHARGE SUMMARY DIAGNOSES: 1. Acute chronic cholecystitis with cholelithiasis. 2. Chronic abdominal pain. PROCEDURE: Laparoscopic cholecystectomy with intraoperative cholangiogram. CONDITION AT DISCHARGE: Improved/good. DISPOSITION: Home. DIET RESTRICTION: A regular diet, but she is to avoid a high fat diet. Specifically, I have recommended she try to keep her diet under 20% of her calories as fat. I have also recommended she avoid constipating foods such as bananas, rice, applesauce, and cheese. HOME MEDICATIONS: Include Tylenol 1000 mg every 8 hours, Toradol 10 mg every 6 hours. She will take Dilaudid 2 mg to 4 mg every 4 hours as needed. She will continue on Pepcid 20 mg twice a day. She will continue her home medications of spironolactone 50 mg daily, Adderall 5 mg at noon and 10 mg in the morning. She will continue to use her NuvaRing. She does not need her simethicone at this point. ACTIVITY RESTRICTIONS: For the next 3 weeks, she is to lift less than 10 pounds , shower only, and keep her Steri-Strips in place. She is to take a multivitamin with 100% of the recommended daily allowance of zinc, copper and C daily. She is to watch for signs of infection. Superficial infection would be warmth, redness, swelling and tenderness. Deep space with fevers, chills, fatigue, loss of appetite. She will follow up with Dr. Dayo Lopez's office in 2 weeks. I suggest that she can return to work next week but to take half a day for the first 2 days to make sure she can tolerate it. Her HbA1C was checked during this admission and was normal as was her TSH /[id number]/MODL MTDD
== END 2017-11-26 15:30 | disposition home or self-care (01) ==
LOC: INTOOBSV 04:35 → F3N 06:17
PROVIDERS: ADMIT Surgery; ATTEND Surgery
PROC: 0FT44ZZ Resection of Gallbladder, Percutaneous Endoscopic Approach (ICD-10-PCS; principal; 2017-11-25 09:15)
DX: K80.00 Calculus of gallbladder with acute cholecystitis without obstruction (principal); R10.9 Unspecified abdominal pain
CPT/HCPCS: 47563; 76001; 76705; 96361; 96374; 96375; 99285; G0378; J0690; J1100; J1170; J1644; J1885; J2250; J2405; J2704; J3010; Q9961